=== PATIENT | female | born 1990 | race Caucasian/White ===

== ENCOUNTER 2016-03-26 22:56 | Emergency (ER) | payer OTHER ==
[2016-03-26 23:07] VITALS: BP 108/70; PULSE 67; TEMP 97.5; BMI 19.3
[2016-03-26] MEDS ORDERED: KETOROLAC TROMETHAMINE 15 MG/ML VIAL IVPUSH ONE (23:23)
[2016-03-26] MEDS ORDERED: METOCLOPRAMIDE HCL INJECTION 10 MG/2 ML VIAL IVPB ONE (23:23)
[2016-03-26] MEDS ORDERED: DEXAMETHASONE SOD PHOSPHATE 10 MG/1 ML VIAL IVPB ONE (23:24)
--- NOTE | 2016-03-26 23:25 | PDOC ---
History of Present Illness - General Chief Complaint: Pain, Acute Stated Complaint: MIGRAINE X ONE YEAR Time Seen by Provider: 03/26/16 23:23 - History of Present Illness Initial Comments: 03/27/16 05:52 migraines x years, worse recently. now with unremitting headaches. throbbing + nausea + tinnitus. bilateral. also reports chest and UE aches. pmh: mood disorder fhx: non-contrib ros: reviewed and otherwise negative oe uncomfortable no diaphoresis or rash nonicteric, PERRL, EOMI, no papilledema mmm nl jvp + acw tenderness rrr cta CN 2,5,7,12 intract, nl strength in 4 ext, nl gait a/p status migrainosus reglan, ketorolac, steroids start acute + preventive therapy Past History - Past Medical History Allergies/Adverse Reactions: Allergies Allergy/AdvReac Type Severity Reaction Status Date / Time No Known Allergies Allergy Verified 03/26/16 23:01 Home Medications: Ambulatory Orders Clonazepam [Klonopin] 1 mg PO HS 12/20/14 Carbamazepine [Tegretol -] 100 mg PO HS 06/16/15 Quetiapine Fumarate [Seroquel -] 50 mg PO HS 06/16/15 Propranolol HCl 10 mg PO TID #45 tablet 03/27/16 Sumatriptan Succinate [Imitrex -] 100 mg PO ONCE PRN #12 tablet 03/27/16 Psychiatric Problems: Yes (MOOD SWINGS) Thyroid Disease: Yes (HASHIMOTOS, HYPOTHYROID) - Immunization History Immunization Up to Date: Yes - Psycho/Social/Smoking Cessation Hx Anxiety: No Suicidal Ideation: No Smoking History: Current some day smoker Have you smoked in the past 12 months: Yes Number of Cigarettes Smoked Daily: 2 Information on smoking cessation initiated: Yes 'Breaking Loose' booklet given: 01/19/15 Hx Alcohol Use: No Drug/Substance Use Hx: No Substance Use Type: Alcohol *Physical Exam - Vital Signs Last Vital Signs Temp Pulse Resp BP Pulse Ox 97.5 F L 67 16 108/70 100 03/26/16 23:03 03/26/16 23:03 03/26/16 23:03 03/26/16 23:03 03/26/16 23:03 *DC/Admit/Observation/Transfer Diagnosis at time of Disposition: Migraine Qualifiers: Migraine type: without aura Status migrainosus presence: with status migrainosus Intractability: not intractable Qualified Code(s): G43.001 - Migraine without aura, not intractable, with status migrainosus - Discharge Dispostion Disposition: HOME Condition at time of disposition: Stable - Prescriptions Prescriptions: Sumatriptan Succinate [Imitrex -] 100 mg PO ONCE PRN #12 tablet PRN Reason: Headache Propranolol HCl 10 mg PO TID #45 tablet - Patient Instructions Printed Discharge Instructions: DI for Migraine
[2016-03-26] MEDS ORDERED: KETOROLAC TROMETHAMINE 30 MG/1 ML VIAL ONE ×2 (23:42→23:48)
[2016-03-26] MEDS ORDERED: DEXAMETHASONE SOD PHOSPHATE 10 MG/1 ML VIAL ONE (23:42)
== END 2016-03-27 00:41 | disposition home or self-care (01) ==
LOC: FER 22:56
PROC: 3E0333Z Introduction of Anti-inflammatory into Peripheral Vein, Percutaneous Approach (ICD-10-PCS; principal; 2016-03-26)
PROC: 3E033GC Introduction of Other Therapeutic Substance into Peripheral Vein, Percutaneous Approach (ICD-10-PCS; 2016-03-26)
DX: G43.001 Migraine without aura, not intractable, with status migrainosus (principal); E03.9 Hypothyroidism, unspecified; F39 Unspecified mood [affective] disorder
CPT/HCPCS: 96374; 96375; 99281-25

== ENCOUNTER 2016-06-08 19:31 | Emergency (ER) | payer OTHER ==
[2016-06-08 19:47] VITALS: BP 120/78; PULSE 74; TEMP 98.6; BMI 19.3
--- NOTE | 2016-06-08 20:01 | PDOC ---
History of Present Illness - History of Present Illness Initial Comments: 06/08/16 20:23 The patient is a 25 year old female with a past medical hx of hypothyroidism and migraines who presents to the ED complaining of a headache since today. She reports her headache is severe and reports this is her usual migraine.The patient was last seen in the ED on 03/26/16 and was informed to follow up with a neurologist. She reports she has not gotten around to making an appointment with a neurologist. The patient has been taking the Sumatriptan she was prescribed, which has help. She ran out of her prescription. She has been recently getting migraines almost daily. She states Ibuprofen does not help. She reports associated nausea, photophobia, sensitivity to sound. The patient denies fever, chills, vomiting <Clarissa Myers - Last Filed: 06/08/16 20:24> <Cathy Strauss - Last Filed: 06/09/16 02:11> - General Chief Complaint: Migraine Headache Stated Complaint: MIGRAINE HEADACHE Time Seen by Provider: 06/08/16 19:34 Past History <Clarissa Myers - Last Filed: 06/08/16 20:24> - Past Medical History Psychiatric Problems: Yes (MOOD SWINGS) Thyroid Disease: Yes (HASHIMOTOS, HYPOTHYROID) - Immunization History Immunization Up to Date: Yes - Psycho/Social/Smoking Cessation Hx Anxiety: No Suicidal Ideation: No Smoking History: Current some day smoker Have you smoked in the past 12 months: Yes Number of Cigarettes Smoked Daily: 2 Information on smoking cessation initiated: Yes 'Breaking Loose' booklet given: 01/19/15 Hx Alcohol Use: No Drug/Substance Use Hx: No Substance Use Type: Alcohol <Cathy Strauss - Last Filed: 06/09/16 02:11> - Past Medical History Allergies/Adverse Reactions: Allergies Allergy/AdvReac Type Severity Reaction Status Date / Time No Known Allergies Allergy Verified 03/26/16 23:01 Home Medications: Ambulatory Orders Clonazepam [Klonopin] 1 mg PO HS 12/20/14 Carbamazepine [Tegretol -] 100 mg PO HS 06/16/15 Quetiapine Fumarate [Seroquel -] 50 mg PO HS 06/16/15 Sumatriptan Succinate [Imitrex -] 100 mg PO ONCE PRN #12 tablet 03/27/16 Sumatriptan Succinate [Imitrex -] 50 mg PO ONCE PRN #16 tablet 06/08/16 Review of Systems - Review of Systems Able to Perform ROS?: Yes Comments:: 06/08/16 20:23 CONSTITUTIONAL: Absent: fever, no chills, no fatigue EYES: Absent: visual changes ENT: +Photophobia, sensitivity to sound. Absent: ear pain, no sore throat CARDIOVASCULAR: Absent: chest pain, no palpitations RESPIRATORY: Absent: cough, no SOB GI: +Nausea. Absent: abdominal pain, no vomiting, no constipation, no diarrhea GENITOURINARY: Absent: dysuria, no frequency, no hematuria MUSCULOSKELETAL: Absent: back pain, no arthralgia, no myalgia SKIN: Absent: rash NEURO: +Headache. <Clarissa Myers - Last Filed: 06/08/16 20:24> *Physical Exam - Vital Signs Last Vital Signs Temp Pulse Resp BP Pulse Ox 98.6 F 74 15 120/78 96 06/08/16 19:33 06/08/16 19:33 06/08/16 19:33 06/08/16 19:33 06/08/16 19:33 - Physical Exam Comments: 06/08/16 20:23 GENERAL: The patient is awake, alert, and fully oriented, in no acute distress. HEAD: Normal with no signs of trauma. EYES: Pupils equal, round and reactive to light, extraocular movements intact, sclera anicteric, conjunctiva clear with no pallor. ENT: Ears normal, nares patent, oropharynx clear without exudates. Moist mucous membranes. NECK: Normal range of motion, supple without lymphadenopathy, JVD, or masses. LUNGS: Breath sounds equal, clear to auscultation bilaterally. No wheeze/ crackles. HEART: Regular rate and rhythm, normal S1 and S2 without murmur or rub. ABDOMEN: Soft/nontender/nondistended. BS wnl. No guarding or rebound. No palpable masses. No hepatosplenomegaly. EXTREMITIES: Normal range of motion, no edema. No clubbing or cyanosis. No cords, erythema, or tenderness. NEUROLOGICAL: Cranial nerves II through XII grossly intact. Normal speech, normal gait. PSYCH: Normal mood, normal affect. SKIN: Warm, Dry, normal turgor, no rashes or lesions noted. <Clraissa Myers - Last Filed: 06/08/16 20:24> - Vital Signs Last Vital Signs Temp Pulse Resp BP Pulse Ox 98.6 F 74 15 120/78 96 06/08/16 19:33 06/08/16 19:33 06/08/16 19:33 06/08/16 19:33 06/08/16 19:33 <Cathy Strauss - Last Filed: 06/09/16 02:11> Progress Note - Progress Note Progress Note: Documentation has been prepared under my direction and personally reviewed by me in its entirety. I attest that this documented accurately reflects all work, treatment, procedures and medical decision making performed by me. <Cathy Strauss - Last Filed: 06/09/16 02:11> Medical Decision Making - Medical Decision Making As noted above, this 25-year-old female patient with several year history of migraine presents with several week history of nearly daily migraine. She was seen here in March, at which time she was given prescription for sumatriptan. Patient states that this worked well but she ran out of this medication. She was supposed to follow-up with neurologist but has not yet done this. There is nothing different about today's migraine or any of recent headaches as compared to previous episodes of her migraine. She is unable to identify triggers of her headaches. Exam as noted Patient states that which she received for her acute migraine in March worked well. At that time she received Reglan 10 mg IV; Toradol 15 mg IV and Decadron 4 mg IV. Patient received these medications and had resolution of her headache. Prescription for sumatriptan 50 mg to be taken as needed for headache (up to 4 tabs a day) will be transmitted to her pharmacy. Referral information for Dr. Jones will be given to the patient. She should call the office tomorrow to make an appointment within the next week. Meanwhile, she has severe headache that is not responding to the Imitrex, she should return to the ER <Cathy Strauss - Last Filed: 06/09/16 02:11> *DC/Admit/Observation/Transfer - Attestations Scribe Attestion: 06/08/16 20:23 Documentation prepared by Clarissa Myers, acting as medical scheduler for Cathy Strauss MD/DO. <Clarissa Myers - Last Filed: 06/08/16 20:24> <Cathy Strauss - Last Filed: 06/09/16 02:11> Diagnosis at time of Disposition: Migraine Qualifiers: Migraine type: chronic without aura Status migrainosus presence: without status migrainosus Intractability: not intractable Qualified Code(s): G43.709 - Chronic migraine without aura, not intractable, without status migrainosus - Discharge Dispostion Disposition: HOME Condition at time of disposition: Stable - Prescriptions Prescriptions: Sumatriptan Succinate [Imitrex -] 50 mg PO ONCE PRN #16 tablet PRN Reason: Headache - Referrals Referrals: Shay Diaz MD [Primary Care Provider] - Kvng Jones MD [Staff Physician] - 1 week - Patient Instructions Printed Discharge Instructions: Migraine -- Adult Additional Instructions: Sumatriptan 50 mg as needed for headache; up to 4 tabs a day Return if you have severe, persistent headache Call neurology office ( group) in a.m. to set up appointment within one week
[2016-06-08] MEDS ORDERED: METOCLOPRAMIDE HCL INJECTION 10 MG/2 ML VIAL IVPUSH ONE (20:32)
[2016-06-08] MEDS ORDERED: KETOROLAC TROMETHAMINE 15 MG/ML VIAL IVPUSH ONE (20:32)
[2016-06-08] MEDS ORDERED: DEXAMETHASONE SOD PHOSPHATE 10 MG/1 ML VIAL IVPUSH ONE (20:33)
[2016-06-08] MEDS ORDERED: DEXAMETHASONE SOD PHOSPHATE 10 MG/1 ML VIAL ONE (20:44)
[2016-06-08] MEDS ORDERED: KETOROLAC TROMETHAMINE 30 MG/1 ML VIAL ONE (20:44)
== END 2016-06-08 21:36 | disposition home or self-care (01) ==
LOC: FER 19:31
PROC: 3E033GC Introduction of Other Therapeutic Substance into Peripheral Vein, Percutaneous Approach (ICD-10-PCS; principal; 2016-06-08)
PROC: 3E0233Z Introduction of Anti-inflammatory into Muscle, Percutaneous Approach (ICD-10-PCS; 2016-06-08)
DX: G43.709 Chronic migraine without aura, not intractable, without status migrainosus (principal)
CPT/HCPCS: 99282-25

== ENCOUNTER 2016-07-10 20:19 | Emergency (ER) | payer OTHER ==
--- NOTE | 2016-07-10 20:24 | PDOC ---
History of Present Illness - General History Source: Patient Exam Limitations: No Limitations - History of Present Illness Initial Comments: 07/10/16 20:51 The patient is a 25 year old female with a past medical history of hypothyroidism and migraines who presents to the ED complaining of a headache since today. She states that this is usual for her migranes. She states that the headache developed early this morning and was not alleviated with medication. She states that she felt a cracking sound inside her head in the middle of the day that did not trigger her headache. The patient was last seen in the ED on 06/08 and was informed to follow up with a neurologist. She reports she has not gotten around to making an appointment with a neurologist because the next available appointment is in September 2016. The patient has been taking the Sumatriptan she was prescribed, which has help, aside from today.She has been recently getting migraines almost daily. She states Ibuprofen does not help. She reports associated nausea, photophobia, sensitivity to sound. The patient denies fever, chills, vomiting Allergy - none <Cheri Wang - Last Filed: 07/10/16 20:51> <Micheal Mccloud - Last Filed: 07/10/16 22:19> - General Chief Complaint: Migraine Headache Stated Complaint: MIGRAINE Time Seen by Provider: 07/10/16 20:23 Past History <Cheri Wang - Last Filed: 07/10/16 20:51> - Past Medical History Psychiatric Problems: Yes (MOOD SWINGS) Thyroid Disease: Yes (HASHIMOTOS, HYPOTHYROID) - Immunization History Immunization Up to Date: Yes - Psycho/Social/Smoking Cessation Hx Anxiety: No Suicidal Ideation: No Smoking History: Current some day smoker Have you smoked in the past 12 months: Yes Number of Cigarettes Smoked Daily: 2 'Breaking Loose' booklet given: 01/19/15 Hx Alcohol Use: No Drug/Substance Use Hx: No Substance Use Type: Alcohol <Micheal Mccloud - Last Filed: 07/10/16 22:19> - Past Medical History Allergies/Adverse Reactions: Allergies Allergy/AdvReac Type Severity Reaction Status Date / Time No Known Allergies Allergy Verified 07/10/16 20:30 Home Medications: Ambulatory Orders Clonazepam [Klonopin] 1 mg PO HS 12/20/14 Carbamazepine [Tegretol -] 100 mg PO HS 06/16/15 Quetiapine Fumarate [Seroquel -] 50 mg PO HS 06/16/15 Sumatriptan Succinate [Imitrex -] 100 mg PO ONCE PRN #12 tablet 03/27/16 Sumatriptan Succinate [Imitrex -] 50 mg PO ONCE PRN #16 tablet 06/08/16 Review of Systems - Review of Systems Able to Perform ROS?: Yes Comments:: 07/10/16 20:52 GENERAL/CONSTITUTIONAL: No fever or chills. No weakness. HEAD, EYES, EARS, NOSE AND THROAT: No change in vision. No ear pain or discharge. No sore throat. CARDIOVASCULAR: No chest pain or shortness of breath. RESPIRATORY: No cough, wheezing, or hemoptysis. GASTROINTESTINAL: No nausea, vomiting, diarrhea or constipation. GENITOURINARY: No dysuria, frequency, or change in urination. MUSCULOSKELETAL: No joint or muscle swelling or pain. No neck or back pain. SKIN: No rash NEUROLOGIC: (+)headache. No vertigo, loss of consciousness, or change in strength/sensation. ENDOCRINE: No increased thirst. No abnormal weight change. HEMATOLOGIC/LYMPHATIC: No anemia, easy bleeding, or history of blood clots. ALLERGIC/IMMUNOLOGIC: No hives or skin allergy. <Cheri Wang - Last Filed: 07/10/16 20:51> *Physical Exam - Vital Signs Last Vital Signs Temp Pulse Resp BP Pulse Ox 99.1 F 82 16 108/66 99 07/10/16 20:20 07/10/16 20:20 07/10/16 20:20 07/10/16 20:20 07/10/16 20:20 - Physical Exam Comments: 07/10/16 20:53 GENERAL: Awake, alert, and fully oriented, in no acute distress HEAD: No signs of trauma EYES: PERRLA, EOMI, sclera anicteric, conjunctiva clear ENT: Auricles normal inspection, hearing grossly normal, nares patent, oropharynx clear without exudates. Moist mucosa NECK: Normal ROM, supple, no lymphadenopathy, JVD, or masses LUNGS: Breath sounds equal, clear to auscultation bilaterally. No wheezes, and no crackles HEART: Regular rate and rhythm, normal S1 and S2, no murmurs, rubs or gallops ABDOMEN: Soft, nontender, normoactive bowel sounds. No guarding, no rebound. No masses EXTREMITIES: Normal range of motion, no edema. No clubbing or cyanosis. No cords, erythema, or tenderness NEUROLOGICAL: Cranial nerves II through XII grossly intact. Normal speech, normal gait SKIN: Warm, Dry, normal turgor, no rashes or lesions noted. <Cheri Wang - Last Filed: 07/10/16 20:51> Medical Decision Making - Medical Decision Making 07/10/16 20:51 25 year old female with a past medical history of hypothyroidism and migraines who presents to the ED complaining of a headache since today.The patient has been taking the Sumatriptan she was prescribed, which has help, aside from today.She has been recently getting migraines almost daily. She reports associated nausea, photophobia, sensitivity to sound. Will order a head CT and reasses after the results are back. <Cheri Wang - Last Filed: 07/10/16 20:51> *DC/Admit/Observation/Transfer - Attestations Scribe Attestion: 07/10/16 20:53 Documentation prepared by KIARRA Murphy, acting as certified medical technician for Micheal Mccloud DO. <Cheri Wang - Last Filed: 07/10/16 20:51> - Attestations Physician Attestion: 07/10/16 20:24 I, Dr. Micheal Mccloud, attest that this document has been prepared under my direction and personally reviewed by me in its entirety. I further attest, that it accurately reflects all work, treatment, procedures and medical decision -making performed by me. <Micheal Mccloud - Last Filed: 07/10/16 22:19> Diagnosis at time of Disposition: Migraine Qualifiers: Migraine type: unspecified Status migrainosus presence: without status migrainosus Intractability: not intractable Qualified Code(s): G43.909 - Migraine, unspecified, not intractable, without status migrainosus - Discharge Dispostion Disposition: HOME Condition at time of disposition: Good - Referrals Referrals: Shay Diaz MD [Primary Care Provider] - - Patient Instructions Printed Discharge Instructions: DI for Migraine Additional Instructions: Judi- Make sure you see a neurologist or a headache specialist. Brooks- Dr. Micheal Mccloud
[2016-07-10] MEDS ORDERED: OXYCODONE/APAP 5/325MG COMBO TABLET PO ONE (20:31)
[2016-07-10] MEDS ORDERED: ONDANSETRON *ODT* 4 MG TABLET SL ONE (20:31)
[2016-07-10] MEDS ORDERED: LORazepam 1 MG TABLET PO ONE (20:31)
[2016-07-10 20:42] VITALS: BP 108/66; PULSE 82; TEMP 99.1; BMI 20.2
[2016-07-10] MEDS ORDERED: ONDANSETRON *ODT* 4 MG TABLET ONE (20:50)
[2016-07-10] MEDS ORDERED: OXYCODONE/APAP 5/325MG COMBO TABLET ONE (20:50)
[2016-07-10] MEDS ORDERED: LORazepam 0.5 MG TABLET ONE (20:51)
== END 2016-07-10 22:37 | disposition home or self-care (01) ==
LOC: FER 20:19
DX: G43.909 Migraine, unspecified, not intractable, without status migrainosus (principal); E03.9 Hypothyroidism, unspecified; Z72.0 Tobacco use; E06.3 Autoimmune thyroiditis
CPT/HCPCS: 70450-TC; 84703; 99282-25

== ENCOUNTER 2022-01-20 12:07 | Emergency (ER) | payer OTHER ==
[2022-01-20 12:31] VITALS: BP 127/87; PULSE 97; RESP 16; TEMP 98.6; BMI 26.2
== END 2022-01-20 14:04 | disposition home or self-care (01) ==
LOC: FER 12:07
DX: R53.1 Weakness (principal)
CPT/HCPCS: 0241U-QW; 81025; 82962; 99283-25

== ENCOUNTER 2023-08-19 21:40 | Emergency (ER) | payer OTHER ==
[2023-08-19 21:50] VITALS: BP 131/90; PULSE 88; RESP 16; TEMP 98.4; BMI 27.4
[2023-08-21 08:10] LABS: COCAINE QUALITATIVE URINE Positive ng/mL (Cutoff=300); MARIJUANA QL URINE CANNABINOID Negative ng/mL (Cutoff=50); METHADONE,QUALITATIVE URINE Negative ng/mL (Cutoff=300); OPIATES QL URINE Negative ng/mL (Cutoff=300); PHENCYCLIDINE,QUAL URINE Negative ng/mL (Cutoff=25); PROPOXYPHENE QL URINE Negative ng/mL (Cutoff=300); URINE AMPHETAMINES Positive ng/mL (Cutoff=1000)
[2023-08-23 13:09] LABS: ALPRAZOLAM, UR Negative (Cutoff=100); AMPHETAMINES QUANTITATIVE UR Positive (Cutoff=1000); BENZODIAZEPINES, UR See Final Results ng/mL (Cutoff=200); CANNABINOIDS, URINE Negative ng/mL (Cutoff=20); CLONAZEPAM, UR Positive (.); FLURAZEPAM, UR Negative (Cutoff=100); LORAZEPAM, UR Negative (Cutoff=100); METHADONE, URINE Negative ng/mL (Cutoff=300); OPIATES, UR Negative ng/mL (Cutoff=300); OXAZEPAM, UR Negative (Cutoff=100); PHENCYCLIDINE, URINE Negative ng/mL (Cutoff=25); TRIAZOLAM, UR Negative (Cutoff=100)
== END 2023-08-19 23:53 | disposition home or self-care (01) ==
LOC: FER 21:40
DX: R51.9 Headache, unspecified (principal); T42.4X5A Adverse effect of benzodiazepines, initial encounter; T43.595A Adverse effect of other antipsychotics and neuroleptics, initial encounter
CPT/HCPCS: 36415; 70450-TC; 80307; 81025; 99284-25

== ENCOUNTER 2024-01-23 08:30 | Emergency (ER) | payer OTHER ==
[2024-01-23 08:41] VITALS: BP 119/82; PULSE 80; RESP 18; TEMP 98.6; BMI 25.7
[2024-01-23] MEDS ORDERED: DIPHTH,PERTUSS(ACELL),TET 0.5 ML DISP.SYRIN IM ONE (09:07)
[2024-01-23] MEDS ORDERED: ACETAMINOPHEN 500 MG TABLET (FP) ONE (09:07)
[2024-01-23] MEDS: DIPHTH,PERTUSS(ACELL),TET 0.5 ML DISP.SYRIN IM ONE (09:44)
[2024-01-23] MEDS: ACETAMINOPHEN 500 MG TABLET (FP) PO ONE (09:45)
== END 2024-01-23 09:55 | disposition home or self-care (01) ==
LOC: FER 08:30
PROC: 0XQKXZZ Repair Left Hand, External Approach (ICD-10-PCS; principal; 2024-01-23)
PROC: 3E0234Z Introduction of Serum, Toxoid and Vaccine into Muscle, Percutaneous Approach (ICD-10-PCS; 2024-01-23)
DX: S51.812A Laceration without foreign body of left forearm, initial encounter (principal); W26.8XXA Contact with other sharp object(s), not elsewhere classified, initial encounter; Z23 Encounter for immunization
CPT/HCPCS: 12002-25; 90471; 90715; 99284-25